=== PATIENT | female | born 1985 | race Caucasian/White ===

== ENCOUNTER 2016-09-04 19:45 | Emergency (ER) | payer SELFPAY | END 2016-09-04 22:21 | disposition left against medical advice (07) | LOC: E/R 19:45 | DX: Z53.21 Procedure and treatment not carried out due to patient leaving prior to being seen by health care provider (principal) ==

== ENCOUNTER 2017-07-09 07:55 | Inpatient (IN) | END 2017-07-11 13:45 | disposition home or self-care (01) | DRG 775 ==